=== PATIENT | female | born 1995 | race Caucasian/White ===

== ENCOUNTER 2020-12-13 02:55 | Emergency (ER) | payer OTHER ==
[2020-12-13] MEDS ORDERED: Magnesium Citrate Solution 296 ML Bottle PO ONE (02:56)
[2020-12-13] MEDS ORDERED: Ondansetron 4 MG Tab.DIS PO ONE (02:56)
[2020-12-13] MEDS ORDERED: Ondansetron 4 MG/2 ML SDV IVPUSH ONE (03:48)
[2020-12-13] MEDS ORDERED: Sodium Chloride 0.9% 1,000 ML IV ONE (03:48)
[2020-12-13] MEDS ORDERED: Ketorolac 30 MG/ML SDV IVPUSH ONE (03:48)
[2020-12-13 04:08] LABS: ANION GAP 12.4 mEq/L (7-13); CHLORIDE,CL 106 mmol/L (98-107); SODIUM,NA 144 mmol/L (136-145)
--- NOTE | 2020-12-13 04:44 | EDM.PDOC ---
ED HPI GENERAL MEDICAL PROBLEM - General Chief Complaint: Genitourinary Problem Stated Complaint: KIDNEY ISSUES, HISTORY OF KIDNEY FAILURE Time Seen by Provider: 12/13/20 03:15 Source of Information: Reports: Patient History Limitations: Reports: No Limitations - History of Present Illness INITIAL COMMENTS - FREE TEXT/NARRATIVE: ED with c/o pain to right flank. Similar to previous kidney stone. C/O nausea without vomiting. Urinary frequency, No fever or chills. Pain x 2 days, not improved with ibuprofen. Last Bm this afternoon. No change in pain. no hx constipation. Right Flank Pain Score (Numeric/FACES): 10 - Related Data Allergies Allergy/AdvReac Type Severity Reaction Status Date / Time No Known Allergies Allergy Verified 12/13/20 03:13 Home Meds: Home Meds Acetaminophen [Tylenol] 325 mg PO 12/13/20 [History] Ibuprofen [Motrin] 600 mg PO 12/13/20 [History] Past Medical History HEENT History: Reports: None Cardiovascular History: Reports: None Respiratory History: Reports: None Gastrointestinal History: Reports: None Genitourinary History: Reports: Renal Calculus, Other (See Below) Other Genitourinary History: renal failure in [employer] MANAGER History: Reports: , Other (See Below) 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 Musculoskeletal History: Reports: None Neurological History: Reports: None Psychiatric History: Reports: None Endocrine/Metabolic History: Reports: None Hematologic History: Reports: None Immunologic History: Reports: None Dermatologic History: Reports: None - Infectious Disease History Infectious Disease History: Reports: None - Past Surgical History Female Surgical History: Reports: Hysterectomy, Tubal Ligation Social & Family History - Family History Family Medical History: No Pertinent Family History - Tobacco Use Tobacco Use Status *Q: Current Every Day Tobacco User Years of Tobacco use: 10 Packs/Tins Daily: 1 - Caffeine Use Caffeine Use: Reports: Coffee - Recreational Drug Use Recreational Drug Use: No ED ROS GENERAL - Review of Systems Review Of Systems: Comprehensive ROS is negative, except as noted in HPI. ED EXAM, RENAL/ - Physical Exam Exam: See Below Exam Limited By: No Limitations General Appearance: Alert, Mild Distress Eye Exam: Bilateral Eye: EOMI Ears: Hearing Grossly Normal Nose: Normal Inspection Throat/Mouth: Normal Inspection Head: Atraumatic, Normocephalic Neck: Normal Inspection Respiratory/Chest: No Respiratory Distress, Lungs Clear Cardiovascular: Normal Peripheral Pulses, Regular Rate, Rhythm GI/Abdominal: Normal Bowel Sounds, Soft Back Exam: CVA Tenderness (R). No: CVA Tenderness (L) Extremities: Normal Inspection, Normal Range of Motion Neurological: Alert, Oriented, Normal Cognition Psychiatric: Normal Affect Skin Exam: Warm, Dry, Intact, Normal Color Course - Vital Signs Last Recorded V/S: Last Vital Signs Temp 97.1 F 12/13/20 03:10 Pulse 88 12/13/20 03:10 Resp 18 12/13/20 03:10 BP 102/68 12/13/20 03:10 Pulse Ox 100 12/13/20 03:10 - Orders/Labs/Meds Labs: Laboratory Tests 12/13/20 12/13/20 12/13/20 Range/Units 03:08 03:08 03:08 WBC (5.0-10.0) 10^3/uL RBC (4.2-5.4) 10^6/uL Hgb (12.0-16.0) g/dL Hct (37.0-47.0) % MCV (80-100) fL MCH (27.0-34.0) pg MCHC (33.0-35.0) g/dL Plt Count (150-450) 10^3/uL Neut % (Auto) (42.2-75.2) % Lymph % (Auto) (20.5-50.1) % Forrest % (Auto) (2-8) % Eos % (Auto) (1.0-3.0) % Baso % (Auto) (0.0-1.0) % Sodium (136-145) mmol/L Potassium (3.5-5.1) mmol/L Chloride (98-107) mmol/L Carbon Dioxide (21-32) mmol/L Anion Gap (7-13) mEq/L BUN (7-18) mg/dL Creatinine (0.55-1.02) mg/dL Est Cr Clr Drug Dosing mL/min Estimated GFR (MDRD) BUN/Creatinine Ratio (No establ ref range) Glucose (70-99) mg/dL Calcium (8.5-10.1) mg/dL Total Bilirubin (0.2-1.0) mg/dL AST (15-37) U/L ALT (14-59) U/L Alkaline Phosphatase (46-116) U/L Total Protein (6.4-8.2) g/dL Albumin (3.4-5.0) g/dL Globulin Albumin/Globulin Ratio Urine Color Yellow (YELLOW) Urine Appearance Clear (CLEAR) Urine pH 5.5 (5.0-9.0) Ur Specific [place] 1.010 (1.005-1.030) Urine Protein Negative (NEGATIVE) Urine Glucose (UA) Negative (NEGATIVE) Urine Ketones Negative (NEGATIVE) Urine Occult Blood Negative (NEGATIVE) Urine Nitrite Negative (NEGATIVE) Urine Bilirubin Negative (NEGATIVE) Urine Urobilinogen 0.2 (0.2-1.0) mg/dL Ur Leukocyte Esterase Negative (NEGATIVE) Urine HCG, Qual Negative Urine Opiates Screen Negative (NEGATIVE) Ur Oxycodone Screen Negative (NEGATIVE) Urine Methadone Screen Negative (NEGATIVE) Ur Barbiturates Screen Negative (NEGATIVE) U Tricyclic Antidepress Negative (NEGATIVE) Ur Phencyclidine Scrn Negative (NEGATIVE) Ur Amphetamine Screen Negative (NEGATIVE) U Methamphetamines Scrn Negative (NEGATIVE) Urine MDMA Screen Negative (NEGATIVE) U Benzodiazepines Scrn Negative (NEGATIVE) Urine Cocaine Screen Negative (NEGATIVE) U Marijuana (THC) Screen Negative (NEGATIVE) 12/13/20 12/13/20 Range/Units 03:29 03:29 WBC 7.5 (5.0-10.0) 10^3/uL RBC 4.31 (4.2-5.4) 10^6/uL Hgb 13.5 (12.0-16.0) g/dL Hct 40.9 (37.0-47.0) % MCV 94.9 (80-100) fL MCH 31.3 (27.0-34.0) pg MCHC 33.0 (33.0-35.0) g/dL Plt Count 242 (150-450) 10^3/uL Neut % (Auto) 52.7 (42.2-75.2) % Lymph % (Auto) 34.2 (20.5-50.1) % Forrest % (Auto) 9.9 H (2-8) % Eos % (Auto) 3.1 H (1.0-3.0) % Baso % (Auto) 0.1 (0.0-1.0) % Sodium 144 (136-145) mmol/L Potassium 4.4 (3.5-5.1) mmol/L Chloride 106 (98-107) mmol/L Carbon Dioxide 30 (21-32) mmol/L Anion Gap 12.4 (7-13) mEq/L BUN 11 (7-18) mg/dL Creatinine 0.85 (0.55-1.02) mg/dL Est Cr Clr Drug Dosing 85.85 mL/min Estimated GFR (MDRD) > 60 BUN/Creatinine Ratio 12.9 (No establ ref range) Glucose 103 H (70-99) mg/dL Calcium 8.9 (8.5-10.1) mg/dL Total Bilirubin 0.3 (0.2-1.0) mg/dL AST 19 (15-37) U/L ALT 33 (14-59) U/L Alkaline Phosphatase 73 (46-116) U/L Total Protein 7.0 (6.4-8.2) g/dL Albumin 4.0 (3.4-5.0) g/dL Globulin 3.0 Albumin/Globulin Ratio 1.3 Urine Color (YELLOW) Urine Appearance (CLEAR) Urine pH (5.0-9.0) Ur Specific [place] (1.005-1.030) Urine Protein (NEGATIVE) Urine Glucose (UA) (NEGATIVE) Urine Ketones (NEGATIVE) Urine Occult Blood (NEGATIVE) Urine Nitrite (NEGATIVE) Urine Bilirubin (NEGATIVE) Urine Urobilinogen (0.2-1.0) mg/dL Ur Leukocyte Esterase (NEGATIVE) Urine HCG, Qual Urine Opiates Screen (NEGATIVE) Ur Oxycodone Screen (NEGATIVE) Urine Methadone Screen (NEGATIVE) Ur Barbiturates Screen (NEGATIVE) U Tricyclic Antidepress (NEGATIVE) Ur Phencyclidine Scrn (NEGATIVE) Ur Amphetamine Screen (NEGATIVE) U Methamphetamines Scrn (NEGATIVE) Urine MDMA Screen (NEGATIVE) U Benzodiazepines Scrn (NEGATIVE) Urine Cocaine Screen (NEGATIVE) U Marijuana (THC) Screen (NEGATIVE) Meds: Medications Discontinued Medications Generic Name Dose Route Start Last Admin Trade Name Freq PRN Reason Stop Dose Admin Sodium Chloride 1,000 mls @ 999 mls/hr 12/13/20 03:48 12/13/20 04:03 Normal Saline IV 12/13/20 04:48 999 mls/hr .BOLUS ONE Administration Ketorolac Tromethamine 30 mg 12/13/20 03:48 12/13/20 04:03 Ketorolac 30 Mg/Ml Sdv IVPUSH 12/13/20 03:49 30 mg ONETIME ONE Administration Ondansetron HCl 4 mg 12/13/20 03:48 12/13/20 04:04 Ondansetron 4 Mg/2 Ml Sdv IVPUSH 12/13/20 03:49 4 mg ONETIME ONE Administration Departure - Departure Time of Disposition: 05:03 Disposition: Home, Self-Care 01 Condition: Good Clinical Impression: Right flank pain, Nausea Constipation Qualifiers: Constipation type: slow transit constipation Qualified Code(s): K59.01 - Slow transit constipation - Discharge Information *PRESCRIPTION DRUG MONITORING PROGRAM REVIEWED*: Yes *COPY OF PRESCRIPTION DRUG MONITORING REPORT IN PATIENT JENNIFER: No Instructions: Constipation, Adult, [id number] Forms: ED Department Discharge Additional Instructions: increase fluids, fruit fiber in diet one bottle mag citrate this am zofran 4mg ODT one every 4 hours as needed for nausea #2 follow up if symptoms worsen Sepsis Event Note (ED) - Evaluation Sepsis Screening Result: No Definite Risk - Focused Exam Vital Signs: Vital Signs Temp Pulse Resp BP Pulse Ox 12/13/20 03:10 97.1 F 88 18 102/68 100
--- NOTE | 2020-12-13 04:54 | CT ---
PROCEDURE INFORMATION: Exam: CT Abdomen And Pelvis Without Contrast Exam date and time: 12/13/2020 4:19 AM Age: 25 years old Clinical indication: Abdominal pain; Flank; Right; Prior surgery; Surgery date: 6+ months; Surgery type: Hysterectomy; Patient HX: HX kidney stones; Additional info: Right flank pain TECHNIQUE: Imaging protocol: Computed tomography of the abdomen and pelvis without contrast. Radiation optimization: All CT scans at this facility use at least one of these dose optimization techniques: automated exposure control; mA and/or kV adjustment per patient size (includes targeted exams where dose is matched to clinical indication); or iterative reconstruction. COMPARISON: No relevant prior studies available. FINDINGS: Lungs: Lung bases are clear. Liver: Normal. No mass. Gallbladder and bile ducts: Normal. No calcified stones. No ductal dilation. Pancreas: Normal. No ductal dilation. Spleen: Normal. No splenomegaly. Adrenal glands: Normal. No mass. Kidneys and ureters: Normal. No hydronephrosis. Stomach and bowel: Moderate colonic fecal content in the right colon and transverse colon. Appendix: Post appendectomy. Intraperitoneal space: Unremarkable. No free air. No significant fluid collection. Vasculature: Pelvic phleboliths. Lymph nodes: Unremarkable. No enlarged lymph nodes. Urinary bladder: The bladder is partially distended without calcifications. Reproductive: Previous hysterectomy. Bones/joints: Unremarkable. No acute fracture. Soft tissues: Abdominal wall soft tissues are unremarkable. IMPRESSION: 1. Moderate right colon and transverse colon fecal content indicating moderate right-sided constipation. 2. No acute abdominal or pelvic findings. 3. Postoperative changes from prior hysterectomy and appendectomy.
[2020-12-13] MEDS ORDERED: Ondansetron 4 MG Tab.DIS ONE (05:11)
[2020-12-13] MEDS ORDERED: Magnesium Citrate Solution 296 ML Bottle ONE (05:11)
== END 2020-12-13 05:20 | disposition home or self-care (01) ==
LOC: DL.ED 02:55
DX: K59.01 Slow transit constipation (principal); R11.0 Nausea; Z72.0 Tobacco use
CPT/HCPCS: 36415; 74176; 80053; 80305; 81003; 81025; 85025; 96374; 96375; 99283; 99284; A9270; J1885; J2405; J7030

== ENCOUNTER 2022-09-17 09:47 | Emergency (ER) | payer BC, MEDICAID, OTHER ==
[2022-09-17] MEDS ORDERED: Sodium Chloride 0.9% 10 ML Syringe FLUSH PRN (10:00)
[2022-09-17] MEDS ORDERED: Ondansetron 4 MG/2 ML SDV IVPUSH ONE (10:36)
[2022-09-17 10:38] LABS: ANION GAP 14.4 mEq/L (7-13); CHLORIDE,CL 104 mmol/L (98-107); SODIUM,NA 141 mmol/L (136-145)
[2022-09-17 10:39] LABS: ESTIMATED GFR 104 mL/min (>=60)
[2022-09-17] MEDS ORDERED: methylPREDNISolone Sodium Succinate 125 MG/2 ML SDV IVPUSH ONE (11:13)
[2022-09-17] MEDS ORDERED: Ketorolac 30 MG/ML SDV IVPUSH ONE (11:14)
[2022-09-17 11:56] LABS: AMPHETAMINES,URINE NEGATIVE (NEGATIVE); BARBITURATES,URINE NEGATIVE (NEGATIVE); BENZODIAZEPINE,URINE NEGATIVE (NEGATIVE); MDMA (ECSTASY), URINE NEGATIVE (NEGATIVE); METHADONE,URINE NEGATIVE (NEGATIVE); METHAMPHETAMINES,URINE NEGATIVE (NEGATIVE); OPIATES,URINE NEGATIVE (NEGATIVE); OXYCODONE,URINE NEGATIVE (NEGATIVE); PHENCYCLIDINE,URINE NEGATIVE (NEGATIVE); TCA,URINE NEGATIVE (NEGATIVE)
== END 2022-09-17 11:31 | disposition home or self-care (01) ==
LOC: DL.ED 09:47
DX: M94.0 Chondrocostal junction syndrome [Tietze] (principal)
CPT/HCPCS: 36415; 71045; 80053; 80305-QW; 81003; 82150; 83605; 83690; 83735; 84145; 84484; 85025; 85610; 85730; 86140; 93005; 93010; 96374; 96375; 99283; 99285-25; J1885; J2405; J2930; J3490

== ENCOUNTER 2023-04-18 18:28 | Emergency (ER) | payer MEDICAID ==
[2023-04-18] MEDS ORDERED: Sodium Chloride 0.9% 10 ML Syringe FLUSH PRN (18:42)
[2023-04-18] MEDS ORDERED: cefTRIAXone 1 GM Vial IVPUSH ONE (18:44)
[2023-04-18] MEDS ORDERED: Ketorolac 30 MG/ML SDV IVPUSH ONE (18:44)
[2023-04-18] MEDS ORDERED: Sodium Chloride 0.9% 1,000 ML IV ONE (18:44)
[2023-04-18] MEDS ORDERED: Morphine 2 MG/ML SYRINGE IVPUSH ONE (19:36)
[2023-04-18 19:49] LABS: APPEARANCE,URINE CLEAR (CLEAR); BILIRUBIN,URINE NEGATIVE (NEGATIVE); COLOR,URINE YELLOW (YELLOW); GLUCOSE,URINE NEGATIVE (NEGATIVE); KETONES,URINE NEGATIVE (NEGATIVE); LEUKOCYTE ESTERASE,URINE NEGATIVE (NEGATIVE); NITRITE,URINE NEGATIVE (NEGATIVE); OCCULT BLOOD,URINE NEGATIVE (NEGATIVE); PROTEIN,URINE NEGATIVE (NEGATIVE); UROBILINOGEN,URINE 0.2 mg/dL (0.2-1.0)
== END 2023-04-18 20:26 | disposition swing bed (61) ==
LOC: DL.ED 18:28
DX: N34.2 Other urethritis (principal); N94.0 Mittelschmerz
CPT/HCPCS: 76856; 81003; 96361; 96374; 96375; 99284; J0696; J1885; J2270; J7030; J3490